=== PATIENT | male | born 1990 | race African-American/Black ===

== ENCOUNTER 2016-10-27 00:06 | Emergency (ER) | payer MEDICAID ==
[~2016-10-27] VITALS: Ht 172.7 cm; Wt 106.6 kg
[~2016-10-27 00:06] MED LIST: ALBUTEROL SULF8.5 GM INH; AMOXICILLIN500 MG ORAL; BENTYL10 MG ORAL; CLARITIN10 M2 ORAL; GUAIFENESI100 MG/5 M ORAL; IBUPROFEN600 MG ORAL; IBUPROFEN800 M1 PO; IBUPROFEN800 MG ORAL; LEVAQUIN500 MG ORAL; NKM; NORCO 5-325 TA1 EACH ORAL; PEPCID20 MG ORAL; PROMETHAZINE-C118 M1 ORAL; SILVADENE CREAM50 GM TOP; ZITHROMAX250 MG ORAL; ZOFRAN4 MG ORAL
[2016-10-27] MEDS ORDERED: Bacitracin Oint UD TOPIC ONE (00:45)
[2016-10-27] MEDS ORDERED: Cephalexin 500mg cap ORAL ONE (00:45)
[2016-10-27] MEDS ORDERED: Hydrogen Peroxide 120ml Bottle TOPIC ONE ×2 (01:43→01:45)
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
[2016-10-27] MEDS ORDERED: IBUPROFEN600 MG ORAL (02:17)
[2016-10-27] MEDS ORDERED: KEFLEX500 MG ORAL (02:17)
[2016-10-27 02:35] VITALS: BP 129/83
[2016-10-27 02:58] VITALS: BP 129/83
== END 2016-10-27 03:02 | disposition home or self-care (01) ==
LOC: EMR 00:52
DX: S01.511A Laceration without foreign body of lip, initial encounter (principal); Y04.2XXA Assault by strike against or bumped into by another person, initial encounter; Y92.29 Other specified public building as the place of occurrence of the external cause; F17.200 Nicotine dependence, unspecified, uncomplicated
CPT/HCPCS: 12051; 99284; Z7502

== ENCOUNTER 2017-02-04 00:15 | Emergency (ER) | payer MEDICAID ==
[~2017-02-04] VITALS: Ht 172.7 cm; Wt 106.6 kg
[~2017-02-04 00:15] MED LIST changes: +KEFLEX500 MG ORAL
[2017-02-04 00:24] VITALS: BP 117/81
[2017-02-04] MEDS ORDERED: NKM (00:24)
[2017-02-04] MEDS ORDERED: Lactulose 20gm/30ml UDC ORAL ONE (00:45)
[2017-02-04 01:29] LABS: APPEARANCE,URINE CLEAR; KETONES,URINE NEGATIVE (NEGATIVE); LEUKOCYTE ESTERASE ,URINE NEGATIVE (NEGATIVE); NITRITE,URINE NEGATIVE (NEGATIVE); PH,URINE 6 (4.5-8.0); PROTEIN,URINE NEGATIVE (NEGATIVE); UROBILINOGEN,URINE NORMAL MG/DL (0.0-1.0)
[2017-02-04 01:30] LABS: BASOPHILS % (AUTO) 2.1 % (0.0-2.0); EOSINOPHILS % (AUTO) 8.2 % (0.0-3.0); MEAN CORPUSCULAR HGB CONC 33.9 G/DL (32.0-36.0); MEAN CORPUSCULAR VOLUME 91 FL (80-99); MEAN PLATELET VOLUME 8.7 FL (6.5-10.1); MONOCYTES % (AUTO) 5.6 % (1.0-10.0); NEUTROPHILS % (AUTO) 40.1 % (45.0-75.0); PLATELET COUNT 260 K/UL (150-450); RED BLOOD COUNT 4.77 M/UL (4.70-6.10); RED CELL DISTRIBUTION WIDTH 11.4 % (11.6-14.8); WHITE BLOOD COUNT 6.9 K/UL (4.8-10.8)
[2017-02-04 01:46] LABS: ALANINE AMINOTRANSFERASE 16 U/L (3-41); ALBUMIN/GLOBULIN RATIO 1.2 (1.0-2.7); ANION GAP 14 (5-15); ASPARTATE AMINO TRANSFERASE 26 U/L (5-40); CALCIUM 9.4 mg/dL (8.6-10.2); CARBON DIOXIDE 23 mEQ/L (20-30); CHLORIDE 100 mEQ/L (98-107); CREATININE 0.8 mg/dL (0.7-1.2); GLOMERULAR FILTRATION RATE > 60 mL/min (>60); HEMOLYSIS 121; LIPASE 34 U/L (< 60); SODIUM 137 mEQ/L (135-145); TOTAL PROTEIN 7.4 g/dL (6.6-8.7)
[2017-02-04 02:24] VITALS: BP 121/79
--- NOTE | 2017-02-04 03:14 | Emergency Room Report ---
History of Present Illness General Chief Complaint: Abdominal Pain Source: Patient Present Illness HPI The patient presents with abdominal distention. He states he hasn't moved his bowels for 4 days. Is unusual for him. He did have a scant amount of hard materially which he passed a couple of days ago. Denies any fevers. Denies pain per se but feels full and bloated. No nausea or vomiting. Reports pain to RN of 7/10, generalized, not radiating. No dysuria, no URI. No rashes, headache, joint pain. Allergies: Coded Allergies: No Known Allergies (Unverified , 06/12/13) Patient History Past Medical History: see triage record Social History: Reports: smoking Reviewed Nursing Documentation: PMH: Agreed, PSxH: Agreed Nursing Documentation-PMH Past Medical History: No Stated History Review of Systems All Other Systems: negative except mentioned in HPI Physical Exam Vital Signs Date Time Temp Pulse Resp B/P Pulse Ox O2 Delivery O2 Flow Rate FiO2 02/04/17 00:21 98.4 68 14 117/81 97 Room Air Sp02 EP Interpretation: reviewed, normal General Appearance: well appearing, no apparent distress, GCS 15 Head: normocephalic Eyes: bilateral eye normal inspection ENT: moist mucus membranes Neck: supple Respiratory: lungs clear, normal breath sounds Cardiovascular #1: regular rate, rhythm Cardiovascular #2: 2+ radial (R) Gastrointestinal: normal inspection, normal bowel sounds, non tender, no mass, non-distended Musculoskeletal: back normal, gait/station normal, normal range of motion Neurologic: alert, oriented x3, grossly normal Psychiatric: mood/affect normal Skin: normal inspection, warm/dry Medical Decision Making Diagnostic Impression: Primary Impression: Abdominal distension Additional Impression: Constipation Qualified Codes: K59.00 - Constipation, unspecified ER Course Patient presents with abdominal distention. Differential includes diverticulitis, gastroenteritis, constipation, dehydration amongst others. Exam is against appendicitis at this time. Evaluation however will be with labs and x-ray. The patient be treated with lactulose. Labs unremarkable. Xray with increased stool Lactulose worked. Patient improved. Patient stable for outpatient observation and treatment. Other X-Ray Diagnostic Results Other X-Ray Diagnostic Results : X-Ray ordered: abd # of Views/Limited Vs Complete: 1 View Indication: Other Interpretation: nonspecific bowel gas, no sbo, other - no masses or calcifications, increased stool Interpreting ER Provider: Electronically signed by Trevor Dywer MD Last Vital Signs Date Time Temp Pulse Resp B/P Pulse Ox O2 Delivery O2 Flow Rate FiO2 02/04/17 03:45 98.4 65 16 128/79 98 Room Air Status: improved Disposition: HOME, SELF-CARE Condition: Improved Scripts Lactulose (LACTULOSE*) 20 Gm/30 Ml Solution 30 ML ORAL BID Y for constipation, #240 ML 0 Refills Prov: Trevor Dwyer M.D. 02/04/17 Referrals: [facility],REFERRING (PCP) Trevor Dwyer M.D. Feb 04, 2017 03:14
[2017-02-04] MEDS ORDERED: LACTULOSE20 GM/301 ORAL (03:18)
[2017-02-04 03:45] VITALS: BP 128/79
--- NOTE | 2017-02-04 09:39 | Diagnostic Imaging Report ---
Indications: Abdominal pain and distention. Technique: AP view of the abdomen Findings: Comparison: CT abdomen pelvis 01/13/15. Bowel gas pattern is unremarkable. No abnormal calcific or soft tissue densities are demonstrated. Visualized skeletal structures are unremarkable. IMPRESSION: Negative KUB.
== END 2017-02-04 03:45 | disposition home or self-care (01) ==
LOC: EMR 00:35
DX: R14.0 Abdominal distension (gaseous) (principal); K59.00 Constipation, unspecified; F17.200 Nicotine dependence, unspecified, uncomplicated
CPT/HCPCS: 36415; 74000; 80053; 81003; 83690; 85025; 96360; 96374; 99284; J2405; 96365

== ENCOUNTER 2017-06-11 09:25 | Emergency (ER) | payer MEDICAID ==
[~2017-06-11] VITALS: Ht 172.7 cm; Wt 102.5 kg
[~2017-06-11 09:25] MED LIST changes: +LACTULOSE20 GM/301 ORAL
[2017-06-11 10:02] VITALS: BP 126/77
[2017-06-11] MEDS ORDERED: TESSALON PERLE100 MG ORAL (10:02)
[2017-06-11] MEDS ORDERED: IBUPROFEN600 MG ORAL (10:02)
[2017-06-11] MEDS ORDERED: GUAIFENESI100 MG/5 M ORAL (10:12)
[2017-06-11 10:31] VITALS: BP 126/77
--- NOTE | 2017-06-11 13:02 | Emergency Room Report ---
History of Present Illness General Chief Complaint: Upper Respiratory Illness Source: Patient Present Illness HPI 27-year-old male p/w cough for 2 days. Pt states cough is productive, with clear non bloody sputum. Also complains of chest pain only when he coughs. Denies fever chills sob.+ runny nose no myalgias. No sick contacts or recent travel. Patient does not smoke. Allergies: Coded Allergies: No Known Allergies (Unverified , 06/12/13) Patient History Past Medical History: see triage record Past Surgical History: none Pertinent Family History: none Reviewed Nursing Documentation: PMH: Agreed, PSxH: Agreed Nursing Documentation-PMH Past Medical History: No Stated History Review of Systems All Other Systems: negative except mentioned in HPI Physical Exam Vital Signs Date Time Temp Pulse Resp B/P (MAP) Pulse Ox O2 Delivery O2 Flow Rate FiO2 06/11/17 09:30 97.3 80 19 126/77 97 Room Air Sp02 EP Interpretation: reviewed, normal General Appearance: normal inspection, well appearing, no apparent distress, alert, GCS 15, non-toxic, other - Not in respiratory distress, speaking complete sentences Head: normocephalic, atraumatic Eyes: bilateral eye normal inspection, bilateral eye PERRL, bilateral eye EOMI ENT: normal ENT inspection, normal pharynx, normal voice, moist mucus membranes Neck: normal inspection, full range of motion, supple Respiratory: normal inspection, lungs clear, normal breath sounds, no respiratory distress, no retraction, no wheezing, speaking full sentences, chest symmetrical Cardiovascular #1: normal inspection, regular rate, rhythm, no edema, normal capillary refill Cardiovascular #2: 2+ radial (R), 2+ radial (L) Gastrointestinal: normal inspection, non tender, soft, non-distended, no guarding Genitourinary: no CVA tenderness Musculoskeletal: normal inspection, back normal, normal range of motion, non- tender Neurologic: normal inspection, alert, oriented x3, responsive, motor strength/ tone normal, sensory intact, normal gait, speech normal Psychiatric: normal inspection, judgement/insight normal, memory normal Skin: normal inspection, normal color, no rash, warm/dry, well hydrated, normal turgor Medical Decision Making Diagnostic Impression: Primary Impression: Upper respiratory infection ER Course 27-year-old male with cough DDX: Viral URI Plan: None in the emergency room ER course: Patient remains nontoxic, not in resp distress. Has been ambulatory around the emergency room Patient became verbally hostile, cursing, yelling, and calling me names for not giving him "cough syrup". Patient is stable for DC. not in resp distress. DCed home Disposition: Patient is to be discharged home with a prescription of Tessalon pearls, guanifesin, Motrin Strict precautions discussed with patient on when to return to the emergency room including hemoptysis, high fevers, chills, SOB, chest pain which may indicate severe illness. Patient is to follow up with their primary care doctor within 5 days. Patient agrees with plan. Please note that this Emergency Department Report was dictated using ReliSenhousekeeping department worker technology software, occasionally this can lead to erroneous entry secondary to interpretation by the dictation equipment Last Vital Signs Date Time Temp Pulse Resp B/P (MAP) Pulse Ox O2 Delivery O2 Flow Rate FiO2 06/11/17 10:31 97.3 72 19 126/77 98 Room Air Disposition: HOME, SELF-CARE Condition: Stable Scripts Guaifenesin* (GUAIFENESIN) 100 Mg/5 Ml Liquid 5 ML ORAL Q4H, #120 ML 0 Refills Prov: Mariposa Sandoval M.D. 06/11/17 Benzonatate* (TESSALON PERLE*) 100 Mg Capsule 100 MG ORAL THREE TIMES A DAY for 7 Days, #21 PERLE 0 Refills Prov: Mariposa Sandoval M.D. 06/11/17 Ibuprofen* (MOTRIN*) 600 Mg Tablet 600 MG ORAL Q8H Y for For Pain, #30 TAB 0 Refills Prov: Mariposa Sandoval M.D. 06/11/17 Patient Instructions: Upper Respiratory Infection, Adult Mariposa Sandoval M.D. Jun 11, 2017 13:02
== END 2017-06-11 10:35 | disposition home or self-care (01) ==
LOC: EMR 10:00
DX: J06.9 Acute upper respiratory infection, unspecified (principal)
CPT/HCPCS: 99283

== ENCOUNTER 2017-09-07 08:55 | Emergency (ER) | payer MEDICAID ==
[~2017-09-07] VITALS: Ht 172.7 cm; Wt 100.7 kg
[~2017-09-07 08:55] MED LIST changes: +TESSALON PERLE100 MG ORAL
[2017-09-07 09:08] VITALS: BP 125/73
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
[2017-09-07] MEDS ORDERED: Lidocaine 1% MPF 10mg/ml 5ml INJ ONE (09:15)
[2017-09-07] MEDS ORDERED: Azithromycin 250mg tab ORAL ONE (09:15)
[2017-09-07 09:20] LABS: APPEARANCE,URINE CLEAR; BILIRUBIN, URINE NEGATIVE (NEGATIVE); COLOR,URINE PALE YELLOW; GLUCOSE, URINE (UA) NEGATIVE (NEGATIVE); KETONES,URINE NEGATIVE (NEGATIVE); LEUKOCYTE ESTERASE ,URINE 2+ (NEGATIVE); NITRITE,URINE NEGATIVE (NEGATIVE); PH,URINE 5 (4.5-8.0); PROTEIN,URINE NEGATIVE (NEGATIVE); UROBILINOGEN,URINE NORMAL MG/DL (0.0-1.0)
[2017-09-07] MEDS ORDERED: KEFLEX500 MG ORAL (09:41)
== END 2017-09-07 10:00 | disposition home or self-care (01) ==
LOC: EMR 09:25
DX: N39.0 Urinary tract infection, site not specified (principal)
CPT/HCPCS: 81001; 87086; 87181; 96372; 99283; J0696; Q0144

== ENCOUNTER 2018-11-22 12:55 | Emergency (ER) | payer MEDICAID ==
[~2018-11-22] VITALS: Ht 175.3 cm; Wt 102.1 kg
[2018-11-22] MEDS ORDERED: NKM (13:04)
--- NOTE | 2018-11-22 13:07 | NUR ---
ED Nurse Note: Pthas been experiencing productive cough with yellowish mucus x 2 weeks and noticed swollen tonsil since yesterday but no complaint of pain. AOx4, VSS. Will cont to monitor.
[2018-11-22 13:09] VITALS: BP 128/78
--- NOTE | 2018-11-22 13:14 | Emergency Room Report ---
History of Present Illness General Chief Complaint: Upper Respiratory Illness Source: Patient Present Illness HPI 28-year-old male with history of tobacco smoke, claiming he has stopped smoking 6 months ago here complaining of 2 weeks of productive cough with yellow mucus. Patient reports that he has been taking cough drops with minimal relief, recently had chest x-ray done for bronchitis and tuberculosis 3 months ago and everything was negative. Patient reports that he started having swollen tonsils with minimal pain this morning. Denies congestion and rhinorrhea at the moment however reports that 2 weeks ago he had congestion and rhinorrhea. Denies chest pain, shortness of breath, palpitation, abdominal pain, nausea vomiting patient reports of wheezing and reports that he has albuterol inhaler at home Allergies: Coded Allergies: No Known Allergies (Unverified , 06/12/13) Patient History Past Medical History: see triage record Past Surgical History: none Pertinent Family History: unable to obtain Social History: Reports: smoking - hx of tobacco smoke, quit 6 months ago Immunizations: UTD Reviewed Nursing Documentation: PMH: Agreed; PSxH: Agreed Nursing Documentation-PMH Past Medical History: No Stated History Review of Systems All Other Systems: negative except mentioned in HPI Physical Exam Vital Signs Date Time Temp Pulse Resp B/P (MAP) Pulse Ox O2 Delivery O2 Flow Rate FiO2 11/22/18 13:00 98.1 62 18 128/78 (95) 99 Room Air Sp02 EP Interpretation: reviewed, normal General Appearance: normal inspection, well appearing, no apparent distress Head: normocephalic, atraumatic Eyes: bilateral eye normal inspection, bilateral eye PERRL ENT: hearing grossly normal, normal pharynx, TMs + canals normal, tonsillar swelling Neck: full range of motion, supple, other - anterior cervical lymphadenopathy Respiratory: chest non-tender, no rhonchi, no respiratory distress, no retraction, no accessory muscle use, wheezing - diffuse Cardiovascular #1: normal inspection, normal peripheral pulses, regular rate, rhythm, no murmur Gastrointestinal: normal inspection, soft, no mass, no bruit Genitourinary: no CVA tenderness Musculoskeletal: normal inspection, back normal Neurologic: normal inspection, alert, oriented x3 Psychiatric: normal inspection, judgement/insight normal Skin: normal inspection, normal color, no rash, warm/dry Lymphatic: adenopathy - Anterior cervical Medical Decision Making PA Attestation All my diagnosis and treatment plans were reviewed ad discussed with my supervising physician Dr. Tenorio Diagnostic Impression: Primary Impression: Acute bacterial bronchitis Additional Impression: Acute bacterial tonsillitis ER Course 28-year-old male with history of tobacco smoke, claiming he has stopped smoking 6 months ago here complaining of 2 weeks of productive cough with yellow mucus. Patient reports that he has been taking cough drops with minimal relief, recently had chest x-ray done for bronchitis and tuberculosis 3 months ago and everything was negative. Patient reports that he started having swollen tonsils with minimal pain this morning. Denies congestion and rhinorrhea at the moment however reports that 2 weeks ago he had congestion and rhinorrhea. Denies chest pain, shortness of breath, palpitation, abdominal pain, nausea vomiting patient reports of wheezing and reports that he has albuterol inhaler at home Ddx considered but are not limited to: strep pharyngitis, URI, tonsilitis, peritonsillar absacess, influneza, bronchitis, tonsillitis Vital signs: are WNL, pt. is afebrile H&PE are most consistent with: Bacterial bronchitis(ex smoker status), tonsillitis ORDERS: Azithromycin, Medrol Dosepak, guaifenesin DM, Tessalon Perles ED INTERVENTIONS: None required at this time. DISCHARGE: At this time pt. is stable for d/c to home. Will provide printed patient care instructions, and any necessary prescriptions. Care plan and follow up instructions have been discussed with the patient prior to discharge. follow up With a primary care provider Last Vital Signs Date Time Temp Pulse Resp B/P (MAP) Pulse Ox O2 Delivery O2 Flow Rate FiO2 11/22/18 13:09 98.1 76 18 128/78 99 Room Air Disposition: HOME, SELF-CARE Condition: Stable Scripts Methylprednisolone (Methylprednisolone*) 4MG Dspk 4 MG ORAL DIRECTED for 6 Days, #21 EA 0 Refills Day 1: Two tablets before breakfast, one after lunch, one after dinner, and two at bedtime. If started late in the day, take all six tablets at once or divide into two or three doses, unless otherwise directed by prescriber. Day 2: One tablet before breakfast, one after lunch, one after dinner, and two at bedtime Day 3: One tablet before breakfast, one after lunch, one after dinner, and one at bedtime Day 4: One tablet before breakfast, one after lunch, and one at bedtime Day 5: One tablet before breakfast and one at bedtime Day 6: One tablet before breakfast Prov: Jamir Barrera 11/22/18 Guaifenesin/Dextromethorphan (Guaifenesin Dm Syrup) 5 Ml Syrup 1 TSP ORAL BEDTIME, #118 ML 0 Refills Prov: Jamir Barrera 11/22/18 Benzonatate* (TESSALON PERLE*) 100 Mg Capsule 100 MG ORAL THREE TIMES A DAY, #20 PERLE Prov: Jamir Barrera 11/22/18 Azithromycin* (ZITHROMAX*) 250 Mg Tablet 250 MG ORAL DAILY, #6 TAB 0 Refills Take two tables once daily for 1 day, then one tablet once daily for 4 days. Prov: Jamir Barrera 11/22/18 Patient Instructions: Acute Bronchitis, [id number], Tonsillitis, [id number] Additional Instructions: Take medication as directed follow-up with your primary care provider use your albuterol inhaler as needed for wheezing Jamir Barrera Nov 22, 2018 13:14
[2018-11-22] MEDS ORDERED: GUAIFENESIN DM118 M1 ORAL (13:16)
[2018-11-22] MEDS ORDERED: MEDROL DOSEPAK4 MG ORAL (13:16)
[2018-11-22] MEDS ORDERED: ZITHROMAX250 MG ORAL (13:16)
[2018-11-22] MEDS ORDERED: TESSALON PERLE100 MG ORAL (13:16)
[2018-11-22 13:29] VITALS: BP 128/78
--- NOTE | 2018-11-22 13:29 | NUR ---
ER DISCHARGE NOTE: Patient is cleared to be discharged per ERMD, pt is aox4, on room air, with stable vital signs. pt was given dc and prescription instructions, pt was able to verbalize understanding, pt id band removed. pt is able to ambulate with steady gait. pt took all belongings.
== END 2018-11-22 13:29 | disposition home or self-care (01) ==
LOC: EMR 13:14
DX: J20.9 Acute bronchitis, unspecified (principal); J03.90 Acute tonsillitis, unspecified; Z87.891 Personal history of nicotine dependence
CPT/HCPCS: 99282

== ENCOUNTER 2019-10-07 02:43 | Emergency (ER) | payer MEDICAID ==
[~2019-10-07] VITALS: Ht 172.7 cm; Wt 102.1 kg
[~2019-10-07 02:43] MED LIST changes: +GUAIFENESIN DM118 M1 ORAL; +MEDROL DOSEPAK4 MG ORAL
--- NOTE | 2019-10-07 03:12 | NUR ---
ED Nurse Note: pt presents to ED c/o R sided "chest pressure" and congestion that started a couple days ago and has gotten worse since. pt reports he first felt the sensation a couple days ago when he woke up, nothing makes it better or worse. pt states he has been taking a lot of vitamin c and airborne but no meds for his symptoms. pt also reports that he feels like it hard to catch his breath, he is able to speak full sentences, satting at 98% on room air
[2019-10-07 03:14] VITALS: BP 149/82
--- NOTE | 2019-10-07 03:30 | NUR ---
ED Nurse Note: xray at pt bedside. blood work and urine collected and sent to lab.
--- NOTE | 2019-10-07 03:47 | Diagnostic Imaging Report ---
EXAM: XR Chest, 1 View CLINICAL HISTORY: CP TECHNIQUE: Frontal view of the chest. COMPARISON: 06/12/2013 FINDINGS: Lungs: Unremarkable. No consolidation. Pleural space: Unremarkable. No pneumothorax. Heart: Unremarkable. No cardiomegaly. Mediastinum: Unremarkable. Bones/joints: Unremarkable. IMPRESSION: Normal chest x-ray.
[2019-10-07 03:49] LABS: ANION GAP 8 mmol/L (5-15); BLOOD UREA NITROGEN 14 mg/dL (7-18); CALCIUM 9.3 MG/DL (8.5-10.1); CARBON DIOXIDE 26 MMOL/L (21-32); CHLORIDE 104 MMOL/L (98-107); POTASSIUM 3.8 MMOL/L (3.5-5.1); SODIUM 138 MMOL/L (136-145)
[2019-10-07 03:50] LABS: BASOPHILS % (AUTO) 2.6 % (0.0-2.0); EOSINOPHILS % (AUTO) 8.2 % (0.0-3.0); HEMATOCRIT 44.8 % (42.0-52.0); HEMOGLOBIN 16.5 G/DL (14.2-18.0); LYMPHOCYTES % (AUTO) 52.3 % (20.0-45.0); MEAN CORPUSCULAR VOLUME 86 FL (80-99); MONOCYTES % (AUTO) 6.1 % (1.0-10.0); NEUTROPHILS % (AUTO) 30.8 % (45.0-75.0); PLATELET COUNT 264 K/UL (150-450); RED BLOOD COUNT 5.22 M/UL (4.70-6.10); RED CELL DISTRIBUTION WIDTH 10.4 % (11.6-14.8); WHITE BLOOD COUNT 8.3 K/UL (4.8-10.8)
[2019-10-07 03:52] LABS: ALANINE AMINOTRANSFERASE 26 U/L (12-78); ALBUMIN 4.3 G/DL (3.4-5.0); ALBUMIN/GLOBULIN RATIO 1.1 (1.0-2.7); ALKALINE PHOSPHATASE 60 U/L (46-116); ASPARTATE AMINO TRANSFERASE 19 U/L (15-37); BILIRUBIN,TOTAL 0.2 MG/DL (0.2-1.0)
--- NOTE | 2019-10-07 03:55 | NUR ---
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 breathing is even and non-labored with stable vital signs.
[2019-10-07] MEDS ORDERED: FAMOTIDINE20 MG ORAL (04:13)
[2019-10-07 04:20] VITALS: BP 149/82
--- NOTE | 2019-10-07 04:20 | NUR ---
ER DISCHARGE NOTE: Patient is cleared to be discharged per ERMD, pt is aox4, on room air, with stable vital signs. pt was given dc and prescription instructions, pt was able to verbalize understanding, pt id band and iv site removed without complications. pt is able to ambulate with steady gait. pt took all belongings.
--- NOTE | 2019-10-07 04:22 | Emergency Room Report ---
History of Present Illness General Chief Complaint: General Complaint Source: Patient Present Illness HPI 29-year-old male presents ED complaining of chest pressure. Started 2 days ago. Notes it in the mid chest, dull, 5 out of 10, radiating upward. Denies shortness of breath. Denies fevers or chills. Denies cough. Denies alcohol or drug use. States that when he burps he feels some relief. No other aggravating relieving factors. Denies any other associated symptoms Allergies: Coded Allergies: No Known Allergies (Unverified , 06/12/13) COVID-19 Screening Contact w/high risk pt: No Recent Travel to affected area: No Experienced COVID-19 symptoms?: No Patient History Past Medical History: none Past Surgical History: none Pertinent Family History: none Social History: Denies: smoking, alcohol use, drug use Immunizations: UTD Reviewed Nursing Documentation: PMH: Agreed; PSxH: Agreed Review of Systems All Other Systems: negative except mentioned in HPI Physical Exam Vital Signs Date Time Temp Pulse Resp B/P (MAP) Pulse Ox O2 Delivery O2 Flow Rate FiO2 10/07/19 02:58 98.1 76 16 149/82 (104) 98 Room Air Sp02 EP Interpretation: reviewed, normal General Appearance: no apparent distress, alert, GCS 15, non-toxic Head: normocephalic, atraumatic Eyes: bilateral eye normal inspection, bilateral eye PERRL ENT: hearing grossly normal, normal pharynx, no angioedema, normal voice Neck: full range of motion, supple/symm/no masses Respiratory: chest non-tender, lungs clear, normal breath sounds, speaking full sentences Cardiovascular #1: regular rate, rhythm, no edema Cardiovascular #2: 2+ carotid (R), 2+ carotid (L), 2+ radial (R), 2+ radial (L) , 2+ dorsalis pedis (R), 2+ dorsalis pedis (L) Gastrointestinal: normal bowel sounds, non tender, soft, non-distended, no guarding, no rebound Rectal: deferred Genitourinary: normal inspection, no CVA tenderness Musculoskeletal: back normal, normal range of motion, gait/station normal, non- tender Neurologic: alert, motor strength/tone normal, oriented x3, sensory intact, responsive, speech normal Psychiatric: judgement/insight normal, memory normal, mood/affect normal, no suicidal/homicidal ideation Reflexes: 3+ bicep (R), 3+ bicep (L), 3+ tricep (R), 3+ tricep (L), 3+ knee (R) , 3+ knee (L) Lymphatic: no adenopathy Medical Decision Making Diagnostic Impression: Primary Impression: GERD (gastroesophageal reflux disease) Qualified Codes: K21.9 - Gastro-esophageal reflux disease without esophagitis ER Course Hospital Course 29-year-old M presents ED complaining of chest pressure Differential diagnoses include: Rib fracture, ID/unstable angina, contusion, muscle strain Clinical course Patient placed on stretcher. After initial history and physical I ordered labs , EKG, chest x-ray. labs reviewed- all electrolytes normal, troponins negative, no leukocytosis, hemoglobin/hematocrit stable EKG - NSr, no acute ischemic changes interpreted by me Chest x-ray-no cardiomegaly, no rib fracture, no pneumothorax, no acute process per HEART score, patient is at low risk for acute event given lack of risk factors. Patient's history is more suggestive of GERD. Discussed findings with patient. Given Pepcid here. Will discharge home with Pepcid. Safe for discharge for close outpatient follow-up. I will provide referrals I. I feel this is a highly complex case requiring extensive working including EKG/Rhythm strip, Xray/CT/US, Blood/urine lab work, repeat exams while in ED, and administration of strong opiates/narcotics for pain control, admission to hospital or close patient follow up. Diagnosis - GERD Stable and discharged to home with Rx Pepcid. Instructed to followup with PMD. Return to ED if symptoms recur or worsen Labs Test 10/07/19 03:20 White Blood Count 8.3 K/UL (4.8-10.8) Red Blood Count 5.22 M/UL (4.70-6.10) Hemoglobin 16.5 G/DL (14.2-18.0) Hematocrit 44.8 % (42.0-52.0) Mean Corpuscular Volume 86 FL (80-99) Mean Corpuscular Hemoglobin 31.7 PG (27.0-31.0) Mean Corpuscular Hemoglobin Concent 36.9 G/DL (32.0-36.0) Red Cell Distribution Width 10.4 % (11.6-14.8) Platelet Count 264 K/UL (150-450) Mean Platelet Volume 7.2 FL (6.5-10.1) Neutrophils (%) (Auto) 30.8 % (45.0-75.0) Lymphocytes (%) (Auto) 52.3 % (20.0-45.0) Monocytes (%) (Auto) 6.1 % (1.0-10.0) Eosinophils (%) (Auto) 8.2 % (0.0-3.0) Basophils (%) (Auto) 2.6 % (0.0-2.0) Sodium Level 138 MMOL/L (136-145) Potassium Level 3.8 MMOL/L (3.5-5.1) Chloride Level 104 MMOL/L (98-107) Carbon Dioxide Level 26 MMOL/L (21-32) Anion Gap 8 mmol/L (5-15) Blood Urea Nitrogen 14 mg/dL (7-18) Creatinine 1.0 MG/DL (0.55-1.30) Estimat Glomerular Filtration Rate > 60 mL/min (>60) Glucose Level 109 MG/DL (74-106) Calcium Level 9.3 MG/DL (8.5-10.1) Total Bilirubin 0.2 MG/DL (0.2-1.0) Aspartate Amino Transf (AST/SGOT) 19 U/L (15-37) Alanine Aminotransferase (ALT/SGPT) 26 U/L (12-78) Alkaline Phosphatase 60 U/L (46-116) Troponin I 0.000 ng/mL (0.000-0.056) Total Protein 8.2 G/DL (6.4-8.2) Albumin 4.3 G/DL (3.4-5.0) Globulin 3.9 g/dL Albumin/Globulin Ratio 1.1 (1.0-2.7) Urine Opiates Screen Negative (NEGATIVE) Urine Barbiturates Screen Negative (NEGATIVE) Phencyclidine (PCP) Screen Negative (NEGATIVE) Urine Amphetamines Screen Negative (NEGATIVE) Urine Benzodiazepines Screen Negative (NEGATIVE) Urine Cocaine Screen Negative (NEGATIVE) Urine Marijuana (THC) Screen Positive (NEGATIVE) EKG Diagnostic Results Rate: normal Rhythm: NSR ST Segments: no acute changes ASA given to the pt in ED: No Rhythm Strip Diag. Results EP Interpretation: yes Rhythm: NSR, no PVC's, no ectopy Chest X-Ray Diagnostic Results Chest X-Ray Diagnostic Results : Chest X-Ray Ordered: Yes Indication: Chest Pain EP Interpretation: Yes Interpretation: no consolidation, no effusion, no pneumothorax, no acute cardiopulmonary disease Impression: No acute disease Electronically Signed by: Electronically signed by Abraham Iglesias MD Last Vital Signs Date Time Temp Pulse Resp B/P (MAP) Pulse Ox O2 Delivery O2 Flow Rate FiO2 10/07/19 03:56 62 17 100 Room Air 10/07/19 03:14 98.1 149/82 Status: improved Disposition: HOME, SELF-CARE Condition: Stable Scripts Famotidine* (Pepcid 20mg tablet*) 20 Mg Tablet 20 MG ORAL DAILY, #30 TAB 0 Refills Prov: Abraham Iglesias MD 10/07/19 Referrals: Shira Arriaga [facility] Patient Instructions: Indigestion, [id number] Abraham Iglesias MD Oct 07, 2019 04:22
== END 2019-10-07 04:20 | disposition home or self-care (01) ==
LOC: EMR 03:09
DX: K21.9 Gastro-esophageal reflux disease without esophagitis (principal)
CPT/HCPCS: 36415; 71045; 80053; 80307; 84484; 85025; 93005; Z7502; 99284